=== PATIENT | male | born 1970 | race Two or more races ===

== ENCOUNTER 2024-04-17 15:54 | Emergency (ER) | payer OTHER ==
[2024-04-17] MEDS: Lidocaine 1% 10 ML MDV INJECT ONE (16:49)
[2024-04-17] MEDS: Diphtheria,Pertussis(Acell),Tetanus Vaccine 0.5 ML Syringe IM ONE (16:49)
[2024-04-17 17:37] VITALS: BP 128/85; PULSE 88
== END 2024-04-17 17:25 | disposition home or self-care (01) ==
LOC: MERGE 15:54 → JD.ED 15:54
DX: S51.811A Laceration without foreign body of right forearm, initial encounter (principal); Z23 Encounter for immunization; W26.8XXA Contact with other sharp object(s), not elsewhere classified, initial encounter
CPT/HCPCS: 12002; 90471; 90715; 99282-25; J3490